=== PATIENT | male | born 1960 | race Hispanic/Latino ===

== ENCOUNTER 2019-11-28 10:30 | Inpatient (IN) | payer SELFPAY ==
[~2019-11-28] VITALS: Ht 167.6 cm; Wt 129.4 kg
[2019-11-28 11:29] LABS: HEMATOCRIT 40.4 % (39.0-50.0); HEMOGLOBIN 13.3 g/dl (14.0-18.0); IMMATURE GRANULOCYTES 0.6 % (0.0-5.0); MEAN CELL VOLUME 95.3 fL CALC (80.0-100.0); MEAN CORPUSCULAR HGB 31.4 pG CALC (26.0-32.0); MEAN CORPUSCULAR HGB CONC 32.9 g/dL CAL (32.0-36.0); NEUT# 6.56 thou/uL (1.82-7.42); RED BLOOD COUNT 4.24 mill/uL (4.70-6.10); RED CELL DISTRI WIDTH 13.9 % (11.5-15.5)
[2019-11-28 11:42] LABS: ALBUMIN 3.8 g/dL (3.2-5.0); ALKALINE PHOSPHATASE 66 u/l (38-126); ANION GAP 13 (6-22 (CALC)); BILIRUBIN, TOTAL 0.7 mg/dL (0.0-1.4); BUN 16 mg/dL (8-23); BUN/CREATININE RATIO 15 (12-20 (CALC)); CARBON DIOXIDE 25 mmol/l (22-30); CHLORIDE 96 mmol/l (95-108); CREATININE 1.1 mg/dL (0.7-1.3); ETHYL ALCOHOL 0 mg/dl (0-30); GFR > 60 ML/MIN (>=60 (CALC)); GFR FOR AFR.AMER. > 60 ML/MIN (>=60 (CALC)); LIPASE 390 u/l (23-300); POTASSIUM 3.7 mmol/l (3.5-5.1); SGOT/AST 46 u/l (19-48); SODIUM 130 mmol/l (137-146); TOTAL PROTEIN 7.4 g/dL (6.3-8.2)
[2019-11-28 11:58] LABS: C-REACTIVE PROTEIN 20.4 mg/dL (0-0.9)
[2019-11-28 17:48] VITALS: BP 153/69
[2019-11-28 23:50] VITALS: BP 113/57
[2019-11-29 03:41] LABS: URINE BILIRUBIN - DIPSTICK NEGATIVE (NEGATIVE); URINE BLOOD DIPSTICK NEGATIVE (NEGATIVE); URINE COLOR YELLOW; URINE GLUCOSE - DIPSTICK NEGATIVE (NEGATIVE); URINE KETONE TRACE mg/dL (NEGATIVE); URINE LEUK ESTERASE NEGATIVE (NEGATIVE); URINE NITRITE - DIPSTICK NEGATIVE (Negative); URINE PROTEIN - DIPSTICK 30 mg/dL (NEG-TRACE); URINE UROBILINOGEN - DIPSTICK 0.2 E.U./dL (0.2)
[2019-11-29 03:50] LABS: URINE EPITHELIAL CELLS FEW EPI/hpf (0-FEW)
[2019-11-29 03:51] LABS: BARBITURATES NEGATIVE (NEGATIVE); COCAINE NEGATIVE (NEGATIVE); METHADONE NEGATIVE (NEGATIVE); OXCYCODONE NEGATIVE (NEGATIVE); TETRAHYDROCANNABIONOL NEGATIVE (NEGATIVE); TRICYLIC ANTIDEPRESSANTS NEGATIVE (NEGATIVE); URINE BACTERIA FEW hpf
[2019-11-29 04:04] VITALS: BP 121/69
[2019-11-29 06:46] LABS: CHOLESTEROL HDL RATIO 3.3 (<4.4 (CALC))
[2019-11-29 08:50] VITALS: BP 128/63
[2019-11-29 12:05] VITALS: BP 106/55
[2019-11-29 16:17] VITALS: BP 130/71
[2019-11-29 21:27] VITALS: BP 116/66
[2019-11-30] VITALS (11 sets, daily range): BP systolic 106–146; BP diastolic 56–74
[2019-11-30 06:01] LABS: HEMOGLOBIN 11.8 g/dl (14.0-18.0); MEAN CELL VOLUME 96.5 fL CALC (80.0-100.0); MEAN CORPUSCULAR HGB 31.6 pG CALC (26.0-32.0); MEAN CORPUSCULAR HGB CONC 32.8 g/dL CAL (32.0-36.0); RED BLOOD COUNT 3.73 mill/uL (4.70-6.10); RED CELL DISTRI WIDTH 13.8 % (11.5-15.5)
[2019-11-30 06:25] LABS: ALKALINE PHOSPHATASE 55 u/l (38-126); BILIRUBIN, TOTAL 0.5 mg/dL (0.0-1.4); BUN 10 mg/dL (8-23); BUN/CREATININE RATIO 11 (12-20 (CALC)); CHLORIDE 100 mmol/l (95-108); GFR > 60 ML/MIN (>=60 (CALC)); GFR FOR AFR.AMER. > 60 ML/MIN (>=60 (CALC)); SGOT/AST 41 u/l (19-48); SODIUM 130 mmol/l (137-146)
[2019-11-30 06:26] LABS: ALBUMIN 2.7 g/dL (3.2-5.0); ANION GAP 15 (6-22 (CALC)); CARBON DIOXIDE 19 mmol/l (22-30); TOTAL PROTEIN 5.5 g/dL (6.3-8.2)
[2019-11-30 06:27] LABS: C-REACTIVE PROTEIN > 9.0 mg/dL (0-0.9)
[2019-12-01] VITALS (22 sets, daily range): BP systolic 99–121; BP diastolic 56–73
[2019-12-01 05:38] LABS: HEMATOCRIT 38.5 % (39.0-50.0); HEMOGLOBIN 12.5 g/dl (14.0-18.0); IMMATURE GRANULOCYTES 1.1 % (0.0-5.0); MEAN CELL VOLUME 95.3 fL CALC (80.0-100.0); MEAN CORPUSCULAR HGB 30.9 pG CALC (26.0-32.0); MEAN CORPUSCULAR HGB CONC 32.5 g/dL CAL (32.0-36.0); NEUT# 4.27 thou/uL (1.82-7.42); RED BLOOD COUNT 4.04 mill/uL (4.70-6.10); RED CELL DISTRI WIDTH 13.6 % (11.5-15.5)
[2019-12-01 06:03] LABS: ALBUMIN 2.6 g/dL (3.2-5.0); ALKALINE PHOSPHATASE 56 u/l (38-126); BILIRUBIN, TOTAL 0.4 mg/dL (0.0-1.4); BUN 7 mg/dL (8-23); BUN/CREATININE RATIO 9 (12-20 (CALC)); CHLORIDE 105 mmol/l (95-108); CREATININE 0.9 mg/dL (0.7-1.3); GFR > 60 ML/MIN (>=60 (CALC)); GFR FOR AFR.AMER. > 60 ML/MIN (>=60 (CALC)); POTASSIUM 3.8 mmol/l (3.5-5.1); SGOT/AST 44 u/l (19-48); SODIUM 135 mmol/l (137-146); TOTAL PROTEIN 5.4 g/dL (6.3-8.2)
[2019-12-01 06:05] LABS: ANION GAP 9 (6-22 (CALC)); C-REACTIVE PROTEIN > 9.0 mg/dL (0-0.9); CARBON DIOXIDE 25 mmol/l (22-30)
[2019-12-02] VITALS (20 sets, daily range): BP systolic 99–142; BP diastolic 56–80
[2019-12-02 06:13] LABS: BASO% 0 % (0-3); EOS% 2 % (0-8); HEMATOCRIT 37.2 % (39.0-50.0); HEMOGLOBIN 12.2 g/dl (14.0-18.0); IMMATURE GRANULOCYTES 1.1 % (0.0-5.0); LYMPH% 12 % (15-41); MEAN CELL VOLUME 95.1 fL CALC (80.0-100.0); MEAN CORPUSCULAR HGB 31.2 pG CALC (26.0-32.0); MEAN CORPUSCULAR HGB CONC 32.8 g/dL CAL (32.0-36.0); MONO% 3 % (2-13); NEUT# 5.11 thou/uL (1.82-7.42); NEUT% 81 % (42-76); PLATELET COUNT 253 thou/uL (130-400); RED BLOOD COUNT 3.91 mill/uL (4.70-6.10); RED CELL DISTRI WIDTH 13.7 % (11.5-15.5)
[2019-12-02 06:41] LABS: ALBUMIN 2.6 g/dL (3.2-5.0); ALKALINE PHOSPHATASE 47 u/l (38-126); ANION GAP 10 (6-22 (CALC)); BILIRUBIN, TOTAL 0.4 mg/dL (0.0-1.4); BUN 9 mg/dL (8-23); BUN/CREATININE RATIO 12 (12-20 (CALC)); CARBON DIOXIDE 24 mmol/l (22-30); CHLORIDE 104 mmol/l (95-108); CREATININE 0.8 mg/dL (0.7-1.3); GFR > 60 ML/MIN (>=60 (CALC)); GFR FOR AFR.AMER. > 60 ML/MIN (>=60 (CALC)); POTASSIUM 4.2 mmol/l (3.5-5.1); SGOT/AST 50 u/l (19-48); SODIUM 134 mmol/l (137-146); TOTAL PROTEIN 5.6 g/dL (6.3-8.2)
[2019-12-02 06:57] LABS: C-REACTIVE PROTEIN 11.8 mg/dL (0-0.9)
[2019-12-03] VITALS (19 sets, daily range): BP systolic 87–125; BP diastolic 53–69
[2019-12-04] VITALS (16 sets, daily range): BP systolic 96–136; BP diastolic 44–77
[2019-12-04 05:27] LABS: ANION GAP 11 (6-22 (CALC)); BUN 8 mg/dL (8-23); BUN/CREATININE RATIO 11 (12-20 (CALC)); CARBON DIOXIDE 23 mmol/l (22-30); CHLORIDE 102 mmol/l (95-108); CREATININE 0.7 mg/dL (0.7-1.3); GFR > 60 ML/MIN (>=60 (CALC)); GFR FOR AFR.AMER. > 60 ML/MIN (>=60 (CALC)); POTASSIUM 3.8 mmol/l (3.5-5.1); SODIUM 132 mmol/l (137-146)
[2019-12-05] VITALS (20 sets, daily range): BP systolic 95–127; BP diastolic 52–72
[2019-12-05 05:29] LABS: HEMATOCRIT 36.9 % (39.0-50.0); HEMOGLOBIN 12.4 g/dl (14.0-18.0); IMMATURE GRANULOCYTES 3.5 % (0.0-5.0); MEAN CELL VOLUME 93.9 fL CALC (80.0-100.0); MEAN CORPUSCULAR HGB 31.6 pG CALC (26.0-32.0); MEAN CORPUSCULAR HGB CONC 33.6 g/dL CAL (32.0-36.0); NEUT# 5.34 thou/uL (1.82-7.42); RED BLOOD COUNT 3.93 mill/uL (4.70-6.10); RED CELL DISTRI WIDTH 13.4 % (11.5-15.5)
[2019-12-05 06:01] LABS: ALBUMIN 2.7 g/dL (3.2-5.0); ALKALINE PHOSPHATASE 66 u/l (38-126); ANION GAP 12 (6-22 (CALC)); BILIRUBIN, TOTAL 0.4 mg/dL (0.0-1.4); BUN 8 mg/dL (8-23); BUN/CREATININE RATIO 11 (12-20 (CALC)); C-REACTIVE PROTEIN 3.8 mg/dL (0-0.9); CARBON DIOXIDE 23 mmol/l (22-30); CHLORIDE 102 mmol/l (95-108); CREATININE 0.7 mg/dL (0.7-1.3); GFR > 60 ML/MIN (>=60 (CALC)); GFR FOR AFR.AMER. > 60 ML/MIN (>=60 (CALC)); SODIUM 132 mmol/l (137-146); TOTAL PROTEIN 5.8 g/dL (6.3-8.2)
[2019-12-05 06:11] LABS: SGOT/AST 104 u/l (19-48)
[2019-12-06] VITALS (20 sets, daily range): BP systolic 84–136; BP diastolic 42–73
[2019-12-07] VITALS (9 sets, daily range): BP systolic 93–126; BP diastolic 58–77
[2019-12-07 05:40] LABS: HEMATOCRIT 38.8 % (39.0-50.0); IMMATURE GRANULOCYTES 4.7 % (0.0-5.0); MEAN CELL VOLUME 94.9 fL CALC (80.0-100.0); MEAN CORPUSCULAR HGB 31.8 pG CALC (26.0-32.0); MEAN CORPUSCULAR HGB CONC 33.5 g/dL CAL (32.0-36.0); NEUT# 3.09 thou/uL (1.82-7.42); RED BLOOD COUNT 4.09 mill/uL (4.70-6.10); RED CELL DISTRI WIDTH 13.6 % (11.5-15.5)
[2019-12-07 06:02] LABS: ALKALINE PHOSPHATASE 70 u/l (38-126); ANION GAP 12 (6-22 (CALC)); BILIRUBIN, TOTAL 0.3 mg/dL (0.0-1.4); BUN 6 mg/dL (8-23); BUN/CREATININE RATIO 9 (12-20 (CALC)); C-REACTIVE PROTEIN 1.4 mg/dL (0-0.9); CARBON DIOXIDE 24 mmol/l (22-30); CHLORIDE 106 mmol/l (95-108); CREATININE 0.7 mg/dL (0.7-1.3); GFR > 60 ML/MIN (>=60 (CALC)); GFR FOR AFR.AMER. > 60 ML/MIN (>=60 (CALC)); POTASSIUM 4.1 mmol/l (3.5-5.1); SGOT/AST 72 u/l (19-48); SODIUM 138 mmol/l (137-146); TOTAL PROTEIN 6.2 g/dL (6.3-8.2)
[2019-12-07] MEDS ORDERED: ALLOPURINOL XX (15:14)
[2019-12-08 03:40] VITALS: BP 106/70
[2019-12-08 05:54] LABS: HEMATOCRIT 38.7 % (39.0-50.0); HEMOGLOBIN 12.5 g/dl (14.0-18.0); MEAN CORPUSCULAR HGB CONC 32.3 g/dL CAL (32.0-36.0); NEUT# 3.79 thou/uL (1.82-7.42); RED BLOOD COUNT 4.03 mill/uL (4.70-6.10); RED CELL DISTRI WIDTH 13.6 % (11.5-15.5)
[2019-12-08 06:21] LABS: ALKALINE PHOSPHATASE 63 u/l (38-126); ANION GAP 9 (6-22 (CALC)); BILIRUBIN, TOTAL 0.3 mg/dL (0.0-1.4); BUN 6 mg/dL (8-23); BUN/CREATININE RATIO 8 (12-20 (CALC)); C-REACTIVE PROTEIN 1.3 mg/dL (0-0.9); CARBON DIOXIDE 27 mmol/l (22-30); CHLORIDE 105 mmol/l (95-108); CREATININE 0.8 mg/dL (0.7-1.3); GFR > 60 ML/MIN (>=60 (CALC)); GFR FOR AFR.AMER. > 60 ML/MIN (>=60 (CALC)); POTASSIUM 4.1 mmol/l (3.5-5.1); SGOT/AST 79 u/l (19-48); SODIUM 137 mmol/l (137-146)
[2019-12-08 08:04] VITALS: BP 119/69
[2019-12-08 11:33] VITALS: BP 109/63
[2019-12-08 16:20] VITALS: BP 134/82
[2019-12-08 19:12] VITALS: BP 125/77
[2019-12-08 23:55] VITALS: BP 132/74
[2019-12-09 05:47] VITALS: BP 130/79
[2019-12-09 07:47] VITALS: BP 135/67
[2019-12-09 11:35] VITALS: BP 120/66
[2019-12-09 15:46] VITALS: BP 111/70
[2019-12-09 18:59] VITALS: BP 122/71
[2019-12-10 00:55] VITALS: BP 141/74
[2019-12-10 04:50] VITALS: BP 134/78
[2019-12-10 05:57] LABS: HEMATOCRIT 36.7 % (39.0-50.0); HEMOGLOBIN 11.7 g/dl (14.0-18.0); IMMATURE GRANULOCYTES 1.5 % (0.0-5.0); MEAN CELL VOLUME 96.6 fL CALC (80.0-100.0); MEAN CORPUSCULAR HGB 30.8 pG CALC (26.0-32.0); MEAN CORPUSCULAR HGB CONC 31.9 g/dL CAL (32.0-36.0); NEUT# 19.89 thou/uL (1.82-7.42); RED BLOOD COUNT 3.8 mill/uL (4.70-6.10); RED CELL DISTRI WIDTH 13.8 % (11.5-15.5)
[2019-12-10 06:08] LABS: ALBUMIN 3.3 g/dL (3.2-5.0); ALKALINE PHOSPHATASE 78 u/l (38-126); ANION GAP 13 (6-22 (CALC)); BILIRUBIN, TOTAL 0.3 mg/dL (0.0-1.4); BUN 19 mg/dL (8-23); BUN/CREATININE RATIO 24 (12-20 (CALC)); C-REACTIVE PROTEIN 0.8 mg/dL (0-0.9); CARBON DIOXIDE 24 mmol/l (22-30); CHLORIDE 104 mmol/l (95-108); CREATININE 0.8 mg/dL (0.7-1.3); GFR > 60 ML/MIN (>=60 (CALC)); GFR FOR AFR.AMER. > 60 ML/MIN (>=60 (CALC)); POTASSIUM 4.8 mmol/l (3.5-5.1); SGOT/AST 60 u/l (19-48); SODIUM 136 mmol/l (137-146); TOTAL PROTEIN 6.6 g/dL (6.3-8.2)
[2019-12-10 08:00] VITALS: BP 122/71
[2019-12-10 11:17] VITALS: BP 134/77
[2019-12-10 15:34] VITALS: BP 140/80
[2019-12-10 20:29] VITALS: BP 137/69
[2019-12-11] VITALS (8 sets, daily range): BP systolic 119–157; BP diastolic 65–87
[2019-12-12 04:00] VITALS: BP 150/92
[2019-12-12 08:46] VITALS: BP 109/67
[2019-12-12 09:19] LABS: HEMATOCRIT 41.1 % (39.0-50.0); HEMOGLOBIN 13.3 g/dl (14.0-18.0); MEAN CORPUSCULAR HGB 31.1 pG CALC (26.0-32.0); MEAN CORPUSCULAR HGB CONC 32.4 g/dL CAL (32.0-36.0); NEUT# 12.82 thou/uL (1.82-7.42); RED BLOOD COUNT 4.28 mill/uL (4.70-6.10); RED CELL DISTRI WIDTH 13.9 % (11.5-15.5)
[2019-12-12 09:20] LABS: IMMATURE GRANULOCYTES 6.2 % (0.0-5.0)
[2019-12-12 10:41] LABS: ALBUMIN 3.6 g/dL (3.2-5.0); ALKALINE PHOSPHATASE 85 u/l (38-126); ANION GAP 12 (6-22 (CALC)); BILIRUBIN, TOTAL 0.4 mg/dL (0.0-1.4); BUN 27 mg/dL (8-23); BUN/CREATININE RATIO 32 (12-20 (CALC)); C-REACTIVE PROTEIN < 0.5 mg/dL (0-0.9); CARBON DIOXIDE 24 mmol/l (22-30); CHLORIDE 106 mmol/l (95-108); CREATININE 0.9 mg/dL (0.7-1.3); GFR > 60 ML/MIN (>=60 (CALC)); GFR FOR AFR.AMER. > 60 ML/MIN (>=60 (CALC)); POTASSIUM 4.1 mmol/l (3.5-5.1); SGOT/AST 28 u/l (19-48); SODIUM 138 mmol/l (137-146); TOTAL PROTEIN 6.9 g/dL (6.3-8.2)
[2019-12-12 11:14] VITALS: BP 122/73
[2019-12-12 15:16] VITALS: BP 144/88
[2019-12-12 19:10] VITALS: BP 126/80
[2019-12-13] VITALS: BP 140/79
[2019-12-13 03:30] VITALS: BP 145/72
[2019-12-13 05:19] LABS: HEMATOCRIT 40.3 % (39.0-50.0); HEMOGLOBIN 12.9 g/dl (14.0-18.0); IMMATURE GRANULOCYTES 5.8 % (0.0-5.0); MEAN CELL VOLUME 96.6 fL CALC (80.0-100.0); MEAN CORPUSCULAR HGB 30.9 pG CALC (26.0-32.0); NEUT# 14.23 thou/uL (1.82-7.42); RED BLOOD COUNT 4.17 mill/uL (4.70-6.10); RED CELL DISTRI WIDTH 13.8 % (11.5-15.5)
[2019-12-13 05:50] LABS: ALBUMIN 3.3 g/dL (3.2-5.0); ALKALINE PHOSPHATASE 85 u/l (38-126); ANION GAP 11 (6-22 (CALC)); BILIRUBIN, TOTAL 0.3 mg/dL (0.0-1.4); BUN 27 mg/dL (8-23); BUN/CREATININE RATIO 32 (12-20 (CALC)); C-REACTIVE PROTEIN < 0.5 mg/dL (0-0.9); CARBON DIOXIDE 25 mmol/l (22-30); CHLORIDE 105 mmol/l (95-108); CREATININE 0.9 mg/dL (0.7-1.3); GFR > 60 ML/MIN (>=60 (CALC)); GFR FOR AFR.AMER. > 60 ML/MIN (>=60 (CALC)); POTASSIUM 4.1 mmol/l (3.5-5.1); SGOT/AST 21 u/l (19-48); SODIUM 136 mmol/l (137-146); TOTAL PROTEIN 6.4 g/dL (6.3-8.2)
[2019-12-13 08:32] VITALS: BP 119/72
[2019-12-13] MEDS ORDERED: ALLOPURINOL100 MG PO (11:04)
[2019-12-13] MEDS ORDERED: VITAMIN D2000 UNI2 PO (11:04)
[2019-12-13] MEDS ORDERED: MEDDOSEPAK PO (11:04)
[2019-12-13 11:34] VITALS: BP 125/71
== END 2019-12-13 15:08 | disposition home or self-care (01) | DRG 177 ==
LOC: ED 10:30 → ED-I 14:30 → ED 15:41 → ED-I 15:42 → MS2 16:56 → ICU 11-29 11:57 → MS2 11-29 11:57 → ICU 11-30 12:37 → MS2 12-07 06:31
PROVIDERS: Family Medicine; Internal Medicine; Nurse Practitioner Family; ADMIT Internal Medicine; ATTEND Internal Medicine
DX: U07.1 COVID-19 (principal); J12.89 Other viral pneumonia; J96.01 Acute respiratory failure with hypoxia; M10.09 Idiopathic gout, multiple sites
CPT/HCPCS: J1650; Q3014; Q9967; S0164

== ENCOUNTER 2021-07-05 15:33 | Inpatient (IN) | payer SELFPAY ==
[~2021-07-05] VITALS: Ht 167.6 cm; Wt 100.0 kg
[~2021-07-05 15:33] MED LIST: ALLOPURINOL XX; ALLOPURINOL100 MG PO; MEDDOSEPAK PO; VITAMIN D2000 UNI2 PO
[2021-07-05 17:01] LABS: URINE BLOOD DIPSTICK NEGATIVE (NEGATIVE); URINE COLOR YELLOW; URINE GLUCOSE - DIPSTICK NEGATIVE (NEGATIVE); URINE KETONE TRACE mg/dL (NEGATIVE); URINE LEUK ESTERASE NEGATIVE (NEGATIVE); URINE PROTEIN - DIPSTICK TRACE mg/dL (NEG-TRACE); URINE SPECIFIC GRAVITY 1.015
[2021-07-05 17:03] LABS: URINE BILIRUBIN - DIPSTICK SMALL (NEGATIVE); URINE NITRITE - DIPSTICK NEGATIVE (Negative)
[2021-07-05 17:42] LABS: HEMATOCRIT 39.8 % (39.0-50.0); HEMOGLOBIN 12.6 g/dl (14.0-18.0); IMMATURE GRANULOCYTES 5.2 % (0.0-5.0); MEAN CELL VOLUME 97.8 fL CALC (80.0-100.0); MEAN CORPUSCULAR HGB CONC 31.7 g/dL CAL (32.0-36.0); NEUT# 5.7 thou/uL (1.82-7.42); RED BLOOD COUNT 4.07 mill/uL (4.70-6.10); RED CELL DISTRI WIDTH 15.6 % (11.5-15.5)
[2021-07-05 18:54] LABS: BILIRUBIN, TOTAL 1.1 mg/dL (0.0-1.4); CREATININE 2.5 mg/dL (0.7-1.3)
[2021-07-05 21:02] LABS: CPK 2677 u/l (52-200); MYOGLOBIN 6415 ng/mL (0 - 121)
[2021-07-05 22:26] LABS: CREATININE 2.3 mg/dL (0.7-1.3)
[2021-07-05 22:29] LABS: POTASSIUM 5.4 mmol/l (3.5-5.1)
[2021-07-05 23:16] LABS: TSH, 3RD GENERATION 0.28 uIU/mL (0.47 - 4.68)
[2021-07-05 23:50] VITALS: BP 122/73
[2021-07-06] VITALS (26 sets, daily range): BP systolic 47–160; BP diastolic 00–101
[2021-07-06 04:21] LABS: ALBUMIN 1.8 g/dL (3.2-5.0); ALKALINE PHOSPHATASE 71 u/l (38-126); CHLORIDE 109 mmol/l (95-108); SGOT/AST 137 u/l (19-48); SODIUM 137 mmol/l (137-146); TOTAL PROTEIN 4.6 g/dL (6.3-8.2)
[2021-07-06 04:28] LABS: CREATININE 2.9 mg/dL (0.7-1.3); GFR 22 ML/MIN (>=60 (CALC)); GFR FOR AFR.AMER. 27 ML/MIN (>=60 (CALC))
[2021-07-06 04:37] LABS: ANION GAP 23 (6-22 (CALC)); BUN 80 mg/dL (8-23); BUN/CREATININE RATIO 28 (12-20 (CALC)); CARBON DIOXIDE 11 mmol/l (22-30); CPK > 3200 u/l (52-200)
== END 2021-07-06 11:50 | disposition expired | DRG 682 ==
LOC: ED 15:33 → ED-I 20:33 → ED 23:07 → ICU 23:07
PROVIDERS: Emergency Medicine; Family Medicine; ADMIT Hospitalist; ATTEND Hospitalist
PROC: 0BH17EZ Insertion of Endotracheal Airway into Trachea, Via Natural or Artificial Opening (ICD-10-PCS; principal; 2021-07-06)
PROC: 5A1935Z Respiratory Ventilation, Less than 24 Consecutive Hours (ICD-10-PCS; 2021-07-06)
PROC: 0T9B70Z Drainage of Bladder with Drainage Device, Via Natural or Artificial Opening (ICD-10-PCS; 2021-07-06)
DX: N17.9 Acute kidney failure, unspecified (principal); R40.20 Unspecified coma; G93.41 Metabolic encephalopathy; J96.01 Acute respiratory failure with hypoxia; M62.82 Rhabdomyolysis; R57.9 Shock, unspecified; E87.2 Acidosis; E87.5 Hyperkalemia; E86.0 Dehydration; E66.9 Obesity, unspecified; I10 Essential (primary) hypertension; E16.2 Hypoglycemia, unspecified; M15.9 Polyosteoarthritis, unspecified; Z20.822 Contact with and (suspected) exposure to COVID-19; Z66 Do not resuscitate; Z51.5 Encounter for palliative care
CPT/HCPCS: J1610